=== PATIENT | female | born 1985 | race American Indian/Alaskan Native ===

== ENCOUNTER 2016-08-01 14:24 | Emergency (ER) | payer MEDICAID, OTHER ==
[2016-08-01 14:36] VITALS: BMI 20.9
[2016-08-01 14:49] VITALS: PULSE 85; TEMP 97.8
--- NOTE | 2016-08-01 15:00 | ED PDOC ---
Arrival/HPI - General Chief Complaint: Back Pain Time Seen by Provider: 08/01/16 14:30 Historian: Patient - History of Present Illness Narrative History of Present Illness (Text): 08/01/16 14:56 31yo female with PMhx of Hodgkin's Lymphoma present with intermittent crampy pain under her left axillae that radiates to her back. She notes similar history of pain in the past. the last time was last year. States pain suddenly started 2days ago. Pain is usually when she takes a deep inspiration. States she took Tums without relieve. Did not take any analgesic. Denies trauma, chest pain, diaphoresis, tearing/ripping upper back pain, recent travel, LE edema, calf pain, nausea, vomiting, any other complaint. Past Medical History - Provider Review Nursing Documentation Reviewed: Yes - Cardiac Hx Cardiac Disorders: No - Pulmonary Hx Respiratory Disorders: No - Neurological Hx Neurological Disorder: No Hx Alzheimer's Disease: No - HEENT Hx HEENT Disorder: No - Renal Hx Renal Disorder: No - Endocrine/Metabolic Hx Endocrine Disorders: No - Hematological/Oncological Hx Blood Disorders: Yes Hx Chemotherapy: Yes Hx Lymphoma: Yes (hodgkin's) Other/Comment: hodgkins lymphoma - Integumentary Hx Dermatological Disorder: No - Musculoskeletal/Rheumatological Hx Musculoskeletal Disorders: No - Gastrointestinal Hx Gastrointestinal Disorders: Yes Other/Comment: intestinal block - Genitourinary/Gynecological Hx Genitourinary Disorders: Yes Other/Comment: two ectopic pregnancies - Psychiatric Hx Psychophysiologic Disorder: No Hx Substance Use: No - Surgical History Hx Cholecystectomy: Yes - Anesthesia Hx Anesthesia: Yes Hx Anesthesia Reactions: No - Suicidal Assessment Feels Threatened In Home Enviroment: No Family/Social History - Physician Review Nursing Documentation Reviewed: Yes Family/Social History: Unknown Family HX Smoking Status: Light Smoker < 10 Cigarettes Daily Hx Alcohol Use: No Hx Substance Use: No Allergies/Home Meds Allergies/Adverse Reactions: Allergies No Known Allergies Allergy (Verified 08/01/16 14:36) Review of Systems - Physician Review All systems were reviewed & negative as marked: Yes - Review of Systems Constitutional: Normal Eyes: Normal ENT: Normal Respiratory: Normal Cardiovascular: Normal Gastrointestinal: Normal Genitourinary Female: Normal Musculoskeletal: Back Pain Skin: Normal Neurological: Normal Endocrine: Normal Hemo/Lymphatic: Normal Psychiatric: Normal Physical Exam Vital Signs Reviewed: Yes Vital Signs Temp Pulse Resp BP Pulse Ox 03/25/17 14:48 97.8 F 85 18 111/65 99 Temperature: Afebrile Blood Pressure: Normal Pulse: Regular Respiratory Rate: Normal Appearance: Positive for: Well-Appearing, Non-Toxic, Comfortable Pain Distress: None Mental Status: Positive for: Alert and Oriented X 3 - Systems Exam Head: Present: Atraumatic, Normocephalic Pupils: Present: PERRL Extroacular Muscles: Present: EOMI Conjunctiva: Present: Normal Mouth: Present: Moist Mucous Membranes Neck: Present: Normal Range of Motion Respiratory/Chest: Present: Clear to Auscultation, Good Air Exchange. No: Respiratory Distress, Accessory Muscle Use Cardiovascular: Present: Regular Rate and Rhythm, Normal S1, S2. No: Murmurs Abdomen: Present: Normal Bowel Sounds. No: Tenderness, Distention, Peritoneal Signs Back: Present: Paraspinal Tenderness (LEft sided parathoracic tenderness). No: Midline Tenderness, Pain with Leg Raise Upper Extremity: Present: Normal Inspection. No: Cyanosis, Edema Lower Extremity: Present: Normal Inspection. No: Edema Neurological: Present: GCS=15, CN II-XII Intact, Speech Normal Skin: Present: Warm, Dry, Normal Color. No: Rashes Psychiatric: Present: Alert, Oriented x 3, Normal Insight, Normal Concentration Medical Decision Making ED Course and Treatment: 08/01/16 16:27 thoracic spine xray - Strengthening noted. Result was DW the pt. Her pain improved in ED with medication DC home with Naprosyn and flexeril. Referred to her PMD. TRT ER for any new or worsening symptoms - RAD Interpretation Radiology Orders: 08/01/16 14:59 DORSAL (THORACIC) SPINE [RAD] Stat - Medication Orders Current Medication Orders: Discontinued Medications Cyclobenzaprine HCl (Flexeril) 10 mg PO STAT STA Stop: 08/01/16 14:56 Last Admin: 08/01/16 15:07 Dose: 10 MG Ketorolac Tromethamine (Toradol) 60 mg IM STAT STA Stop: 08/01/16 14:56 Last Admin: 08/01/16 15:07 Dose: 60 MG IM Administration Charges Document 08/01/16 15:07 [place] (Rec: 08/01/16 15:08 [facility] [id number]) Injection Site MAR Injection Site Right Gluteus Wilaim Charges for Administration # of IM Administrations 1 Disposition/Present on Arrival - Present on Arrival Any Indicators Present on Arrival: No History of DVT/PE: No History of Uncontrolled Diabetes: No Urinary Catheter: No History of Decub. Ulcer: No History Surgical Site Infection Following: None - Disposition Have Diagnosis and Disposition been Completed?: Yes Diagnosis: Thoracic back sprain Disposition: HOME/ ROUTINE Disposition Time: 16:30 Patient Plan: Discharge Condition: STABLE Discharge Instructions (ExitCare): Back Pain (ED), Muscle Spasm (ED) Additional Instructions: Take medication as directed Follow up with your doctor Return to ED for any new or worsening symptoms Prescriptions: Cyclobenzaprine [Cyclobenzaprine HCl] 10 mg PO TID #10 tab Naproxen [Naprosyn] 500 mg PO BID #20 tab
--- NOTE | 2016-08-01 16:26 | RAD ---
HISTORY: Back pain COMPARISON: No prior. FINDINGS: BONES: Bone alignment is normal. There is no acute fracture or bone destruction. There is straightening of the dorsal spine with loss of normal kyphosis. DISC SPACES: The disc heights are maintained. SOFT TISSUES: Normal. OTHER FINDINGS: The right dual-lumen central venous catheter terminates in the right atrium. IMPRESSION: Straightening of the dorsal spine with loss of normal kyphosis which may be related to muscle spasm. No acute fracture or significant degenerative disc disease.
[2016-08-01 16:34] VITALS: BP 105/67; RESP 16; O2SAT 100
--- NOTE | 2016-08-02 18:30 | CARD ---
APPROVED REPORT EKG Measurement Heart [id number] <Conclusion> Sinus bradycardia Otherwise normal ECG
== END 2016-08-01 16:44 | disposition home or self-care (01) ==
LOC: ED 14:24
DX: S23.3XXA Sprain of ligaments of thoracic spine, initial encounter (principal); X58.XXXA Exposure to other specified factors, initial encounter; Y92.9 Unspecified place or not applicable; Z85.71 Personal history of Hodgkin lymphoma; Z72.0 Tobacco use
CPT/HCPCS: 72070; 93005; 96372; 99283; J1885